=== PATIENT | female | born 1985 | race Hispanic/Latino ===

== ENCOUNTER 2016-10-01 04:38 | Emergency (ER) | payer MEDICAID ==
[2016-10-01 04:51] VITALS: BP 129/84; PULSE 76; RESP 16; TEMP 98.2; O2SAT 98
--- NOTE | 2016-10-01 05:09 | C.PDOC ---
History Of Present Illness Patient is a 31 year old female who presents to the ER with a complaint of nasal congestion for 1 day. Patient reports she has been using a saline nasal spray and OTC allergy tablet with no relief, patient requesting antibiotics. Denies cough, fever, or SOB. Time Seen by Provider: 10/01/16 04:52 Chief Complaint (Nursing): Cough, Cold, Congestion History Per: Patient History/Exam Limitations: no limitations Onset/Duration Of Symptoms: Days (1) Current Symptoms Are (Timing): Still Present Location Of Pain: None Sick Contacts (Context): None Associated Symptoms: Nasal Congestion. denies: Fever, Cough, Other (SOB) Ear Symptoms: Bilateral: None Past Medical History Reviewed: Historical Data, Nursing Documentation, Vital Signs Vital Signs: Last Vital Signs Temp 98.2 F 10/01/16 04:46 Pulse 76 10/01/16 04:46 Resp 16 10/01/16 04:46 BP 129/84 10/01/16 04:46 Pulse Ox 98 10/01/16 05:39 - Medical History PMH: Pneumonia Surgical History: No Surg Hx Family History: States: Unknown Family Hx - Social History Hx Alcohol Use: Yes Hx Substance Use: No - Immunization History Hx Tetanus Toxoid Vaccination: No Hx Influenza Vaccination: No Hx Pneumococcal Vaccination: No Review Of Systems Constitutional: Negative for: Fever ENT: Positive for: Nose Congestion Respiratory: Negative for: Cough, Shortness of Breath Physical Exam - Physical Exam Appears: Well, Non-toxic Skin: Normal Color, Warm, Dry Head: Atraumatic, Normacephalic, Other (No frontal sinus tenderness) Nose: Discharge (Clear), Other (Enlarged turbinates) Oral Mucosa: Moist Throat: Normal, No Erythema, No Exudate Chest: Symmetrical, No Tenderness Cardiovascular: Rhythm Regular, No Murmur Respiratory: Normal Breath Sounds, No Rales, No Rhonchi, No Wheezing Neurological/Psych: Oriented x3, Normal Speech, Normal Cognition ED Course And Treatment O2 Sat by Pulse Oximetry: 98 (Room air) Pulse Ox Interpretation: Normal Progress Note: Patient given Rx for nasal spray and decongestant. Patient requested antibiotics but was advised that they were not indicated at this time , symptoms most likely viral and pt advised to follow up with PMD and to return to ER if condition worsens. Disposition Counseled Patient/Family Regarding: Diagnosis, Need For Followup, Rx Given - Disposition Referrals: Gonzalez Brunner MD [Medical Doctor] - Disposition: HOME/ ROUTINE Disposition Time: 05:06 Condition: STABLE Additional Instructions: Please follow up with pMD in 2 days Take meds as directed Do sinus lavage Return to ER uf worse Prescriptions: Cetirizine HCl/Pseudoephedrine [Zyrtec-D Tablet] 1 each PO BID #10 tab.er.12h Mometasone Furoate [Nasonex] 2 spray NS DAILY #1 bottle Instructions: Rhinosinusitis (ED) - Clinical Impression Clinical Impression: Rhinosinusitis - Scribe Statement The provider has reviewed the documentation as recorded by the Scribe Malachi Henning All medical record entries made by the Scribe were at my direction and personally dictated by me. I have reviewed the chart and agree that the record accurately reflects my personal performance of the history, physical exam, medical decision making, and the department course for this patient. I have also personally directed, reviewed, and agree with the discharge instructions and disposition.
== END 2016-10-01 05:30 | disposition home or self-care (01) ==
LOC: C.ER 04:38
DX: J32.9 Chronic sinusitis, unspecified (principal)